=== PATIENT | female | born 1975 | race Caucasian/White ===

== ENCOUNTER 2020-08-25 01:28 | Emergency (ER) | payer OTHER ==
[2020-08-25 01:46] LABS: HEMOGLOBIN 15.4 gm/dl (12.3-15.3); RED BLOOD COUNT 4.86 M/UL (4.00-5.10); WHITE BLOOD COUNT 14.3 K/UL (4.5-11.0)
[2020-08-25 02:19] LABS: BUN/CREATININE RATIO 15 (0-10)
[2020-08-25] MEDS ORDERED: PRINIVIL20 MG PO (04:44)
== END 2020-08-25 05:00 | disposition home or self-care (01) ==
LOC: ER1 01:28
PROVIDERS: Physician Assistant
DX: I10 Essential (primary) hypertension (principal); F17.200 Nicotine dependence, unspecified, uncomplicated; Z88.5 Allergy status to narcotic agent
CPT/HCPCS: 80053; 82550; 82553; 83874; 84484; 85025; 93005; 99284

== ENCOUNTER 2020-09-12 13:02 | Emergency (ER) | payer OTHER ==
[~2020-09-12 13:02] MED LIST: PRINIVIL20 MG PO
[2020-09-12 13:46] LABS: HEMOGLOBIN 16.3 gm/dl (12.3-15.3); RED BLOOD COUNT 5.16 M/UL (4.00-5.10); WHITE BLOOD COUNT 17.3 K/UL (4.5-11.0)
[2020-09-12 14:09] LABS: BUN/CREATININE RATIO 14 (0-10)
[2020-09-12] MEDS ORDERED: AUGMENTIN 875-1 EACH PO (16:32)
== END 2020-09-12 16:30 | disposition home or self-care (01) ==
LOC: ER1 13:02
PROVIDERS: Physician Assistant
DX: R55 Syncope and collapse (principal); I95.9 Hypotension, unspecified
CPT/HCPCS: 71045; 80053; 81001; 82550; 82553; 82962; 83605; 83874; 84439; 84443; 84484; 85025; 85379; 85652; 87040; 87086; 93005; 99284; J7030

== ENCOUNTER 2020-09-15 02:11 | Emergency (ER) | payer OTHER ==
[~2020-09-15 02:11] MED LIST changes: +AUGMENTIN 875-1 EACH PO
[2020-09-15 02:59] LABS: HEMOGLOBIN 14.5 gm/dl (12.3-15.3); RED BLOOD COUNT 4.58 M/UL (4.00-5.10); WHITE BLOOD COUNT 14.7 K/UL (4.5-11.0)
[2020-09-15 03:31] LABS: BUN/CREATININE RATIO 19 (0-10)
== END 2020-09-15 05:15 | disposition home or self-care (01) ==
LOC: ER1 02:11
PROVIDERS: Emergency Medicine
DX: R07.89 Other chest pain (principal); I10 Essential (primary) hypertension; E03.9 Hypothyroidism, unspecified; F17.210 Nicotine dependence, cigarettes, uncomplicated; Z90.49 Acquired absence of other specified parts of digestive tract; Z90.710 Acquired absence of both cervix and uterus; Z88.5 Allergy status to narcotic agent
CPT/HCPCS: 71046; 80053; 82550; 82553; 83874; 84484; 85025; 93005; 99285